=== PATIENT | female | born 1945 | race Caucasian/White ===

== ENCOUNTER 2021-02-17 08:43 | Outpatient (CLI) | payer MEDICARE, SELFPAY ==
--- NOTE | ~2021-02-17 | US_ITS ---
EXAMINATION: US thyroid DATE: 02/17/2021 09:09 INDICATION: Nontoxic single thyroid nodule. TECHNIQUE: Multiple ultrasound images of the thyroid were obtained. COMPARISON: None. FINDINGS: The right thyroid lobe measures 4.5 x 2.2 x 1.7 cm. The left thyroid lobe measures 4.1 x 1.6 x 1.8 c m. In the left thyroid lobe, there is a 12 mm solid, hypoechoic, [id number] nodule with smooth margin without echogenic foci (TI-RADS TR4). In the left thyroid isthmus, there is a 13 mm predominan tly solid, hypoechoic, [id number] nodule with lobulated margin without echogenic foci (TR4). The re are subcentimeter nodules in right thyroid lobe. IMPRESSION: 1. Multinodular goiter. Thyroid ultrasound is recommended in one year. Reviewed, dictated and finalized at location A. [employer]
== END 2021-02-17 08:44 | disposition home or self-care (01) ==
LOC: ANHIMG 08:48
PROVIDERS: PCP Family Medicine; Visit Provider Otolaryngology
DX: E04.2 Nontoxic multinodular goiter (principal)
CPT/HCPCS: 76536